=== PATIENT | male | born 1995 | race Caucasian/White ===

== ENCOUNTER 2024-07-08 20:45 | Emergency (ER) | payer BC, SELFPAY ==
[2024-07-08 20:57] VITALS: BP 139/84
[2024-07-08 21:27] VITALS: BMI 24.5
--- NOTE | 2024-07-08 21:28 | EDRN ---
Pt has a 'really bad headache' for last 48 hours which has gotten worse today. Pt feels weak, says he gets lightheaded when he stands up. Pt describes shooting pain R side of head and pain in his forehead. Pt took ES tylenol and aleve for pain
which made it more manageable but never got rid of pain. Pt has decreased appetite. No n/v, fever, ill contacts, cough, sore throat, cp/sob.
[2024-07-08 21:34] VITALS: BP 126/76
--- NOTE | 2024-07-08 21:40 | EDRN ---
Pt had covid last month and says his headache today feels similar. Pt tested himself at home and was negative for covid today. Pt took 2 ES tylenol at 1900.
[2024-07-08 22:00] VITALS: BP 109/76
--- NOTE | 2024-07-08 22:32 | ED.GENMED ---
History of Present Illness
General
Chief Complaint: Headache
Source: patient
Time Seen by Provider: 07/08/24 22:24
History of Present Illness
History of Present Illness:
This patient is a 29-year-old male who presents to the ER with a 2-day history of a headache. He first noticed it when he awoke, and at that time it was intermittent and described as 'sharp' momentary discomfort on the right side. Since then it is
gotten 'slowly more constant' and is now across the bifrontal area as well. He has had minimal relief with [id number]-[id number] medications. He has had headaches like this before, described as similar to his COVID headaches although he tested for
COVID COVID at home and is negative. He denies numbness, tingling, focal weakness, change in vision, change in speech, dizziness, vertigo, imbalance. He denies nausea or vomiting and he has mild loss of appetite.
Past History
Past History
ED Past Medical History: None
ED Past Surgical History: Other (hernia)
Social History
Tobacco: Non-smoker
Alcohol: Occasional
Drug: None
Personal:
Living: with family
Phy Exam
Physical Exam
Physical Exam:
GENERAL: Alert , in no apparent distress
EYE: pupils equal and reactive, no nystagmus, EOMI, no photophobia
NECK: Supple, no significant adenopathy, [place] no easily.
ENT: o/p clr, mmm.
CARDIAC: Regular rate and rhythm .
LUNGS: Clear breath sounds bilaterally, no acute respiratory distress,
ABDOMEN: Soft, without focal tenderness, no r/g, no cvat
NEUROLOGICAL: Alert and oriented, no focal neuro deficits, motor 5/5, sens intact, fundoscopic wnl, visual thurman intact, gait wnl, cranial nerves II through XII intact, [id number] normal
SKIN: Warm and dry, skin intact.
MUSCULOSKELETAL: No edema, well perfused.
PSYCH: Normal and appropriate interaction.
Course
Orders/Labs/Results
Orders:
Orders
07/08/24 22:24
CT Head W/o Iv Contrast Urgent
Comment:
Reason For Exam: agudelo
07/08/24 22:35
0.9% Sodium Chloride 1000 ml [Nss] 1,000 ml IV BOLUS
07/08/24 22:41
Complete Blood Count/No Diff Urgent
Comprehensive Metabolic Panel Urgent
07/08/24 23:06
Diphenhydramine [Benadryl] 25 mg IV NOW STA
Metoclopramide [Reglan] 10 mg IV NOW STA
Abnormal Lab Results
07/08/24
22:41
MPV 10.9 H fL
(7.4-10.4)
07/08/24 22:41
07/08/24 22:41
Vital Signs
Initial and Last Documented VS:
Initial Vital Signs
Temp Pulse Resp BP Pulse Ox
98.9 F 124 18 139/84 95
07/08/24 20:57 07/08/24 20:57 07/08/24 20:57 07/08/24 20:57 07/08/24 20:57
Last Documented Vital Signs
Temp Pulse Resp BP Pulse Ox
98.9 F 93 12 123/88 95
07/08/24 20:57 07/08/24 23:00 07/08/24 22:00 07/08/24 23:00 07/08/24 20:57
*Critical Care Note
Total Time (30-74mins, 75-104mins- exclusive of procedures): Not Applicable
Update Note
Update Note:
Patient presents to the Emergency Department with h/a
Number and Complexity of Problems Addressed at the Encounter
� Chronic conditions affecting care:
� Acute Exacerbation and/or Progression of Chronic Illness:
� Differential Diagnosis includes: but not limited to sah, migraine, tension headache, etc
Amount and/or Complexity of Data to be Reviewed and Analyzed
� I performed an independent evaluation of and my interpretation is:
EKG:
CT: Read by radiology vision, NAD head CT
Xrays:
Laboratory Studies:unremkarable
Other:
� Review of other/old records reveals:
� Clinical information was obtained by an independent historian:
� Prescriptions/Medications Considered but not given:
� Further testing considered but not performed:
Risk of Complications and/or Morbidity or Mortality of Patient Management
� Social determinants of health affecting care:
� Discussion with other providers (PCP, Hospitalists, Consultants, etc):
� Escalation of care including admission/observation vs risk of discharge considered: Clinically doubt bleeding given lack of 'red flag' findings such as sudden onset, worst of life, meningismus, etc. etc. Patient also does not
identify signs or symptoms to suggest dissection, no recent trauma, no neck pain. Neurological exam is completely normal, no infection signs or symptoms. IV fluids started, will medicate here and observe closely
1217AM pT smiling, happy,nontoxic, h/a almost fully resolved, feels 'much better' and would like to be discharged. Aware of labs/head ct, import of f/u and reasons to rted.
ED Attending Note
-
Portions of this chart may have been created with voice recognition software.� Occasional wrong word or��sound alike� substitutions may have occurred due to the inherent limitations of voice recognition software.
Discharge Plan
Departure
Patient Disposition: Home (Routine Discharge)
Date of Disposition: 07/09/24
Time of Disposition: 00:16
Patient with high blood pressure during this ER visit?: Yes
Condition: Good
Discharge Problem:
Headache
Instructions: Headache, Adult (DC), BLOOD PRESSURE
Prescriptions:
No Action
No Current Medications
0
Referrals:
NONE,* [Family Provider] -
Activity Restrictions/Additional Instructions:
PLEASE SEE YOUR DOCTOR IN CLOSE FOLLOW UP. IF YOU DEVELOP FEVER, VOMITING, INCREASING/NEW/PERSISTENT HEADACHE, NUMBNESS, WEAKNESS, VISUAL CHANGES, DIZZINESS, OR OTHER WORRISOME SIGNS, GO TO THE ER IMMEDIATELY!
Interventions
Interventions:
*Risk Screen - Suicide Last Done: 07/08/24 20:59
*General Assessment Last Done: 07/08/24 20:57
*Neglect/Abuse Screening Last Done: 07/08/24 20:57
ED- Fall Risk Assessment Last Done: 07/08/24 21:39
*ED COVID-19 Vaccine History Last Done: 07/08/24 21:27
ED- Neurological Assessment Last Done: 07/08/24 21:39
Discharge Date and Time
Print Language: KYRGYZ
[2024-07-08] MEDS: NSS 1000 IV (22:47)
[2024-07-08 22:56] LABS: Hematocrit 40.5 % (39.0-52.0); Hemoglobin 14.9 g/dL (13.0-18.0); Mean Corp Hgb Conc. 36.8 g/dL (33.0-37.0); Mean Corpuscular Hgb 30.8 pg (27.0-31.0); Mean Corpuscular Volume 83.7 fL (80.0-94.0); Mean Platelet Volume 10.9 fL (7.4-10.4); Platelet Count 161 10^3/uL (130-400); Red Blood Cell Count 4.84 10^6/uL (4.70-6.10); Red Cell Dist. Width 11.5 % (11.5-14.5); White Blood Cell Count 6.8 10^3/uL (4.8-10.8)
[2024-07-08 23:00] VITALS: BP 123/88
[2024-07-08] MEDS: BENADRYL 25 MG IV (23:09)
[2024-07-08] MEDS: REGLAN 10 MG IV (23:13)
[2024-07-08 23:14] LABS: ALT (SGPT) 24 U/L (0-50); AST (SGOT) 25 U/L (17-59); Albumin 4.5 g/dl (3.5-5.0); Alkaline Phosphatase 52 U/L (38-126); Blood Urea Nitrogen 10 mg/dl (9-20); Calcium 9.4 mg/dl (8.4-10.2); Carbon Dioxide 29 mmol/L (22-30); Chloride 105 mmol/L (98-107); Estimated Creatinine Clearance > 125 ml/min; Glucose 94 mg/dl (70-99); Potassium 4.2 mmol/L (3.5-5.1); Sodium 144 mmol/L (135-145); Total Bilirubin 0.8 mg/dl (0.2-1.3); eGFR > 60.00
== END 2024-07-09 00:31 | disposition home or self-care (01) ==
LOC: EMR 20:45
PROVIDERS: EMERGENCY PHYSICIAN Emergency Medicine
DX: R51.9 Headache, unspecified (principal); R03.0 Elevated blood-pressure reading, without diagnosis of hypertension
CPT/HCPCS: 99284; 96374; 96375; 96361; 70450; 80053; 85027; 99285

== ENCOUNTER 2024-07-09 10:00 | Emergency (ER) | payer BC, SELFPAY ==
[2024-07-09 10:24] VITALS: BP 109/67
--- NOTE | 2024-07-09 12:23 | ED.GENMED ---
History of Present Illness
General
Chief Complaint: Headache
Time Seen by Provider: 07/09/24 11:51
History of Present Illness
History of Present Illness:
HPI: Patient had onset of MUNGUIA 2 mornings ago as he woke up. Slow onset and progression. He was seen in the ED last evening and had a negative brain CT as well as unremarkable basic blood work. Came back due to vomiting and fever overnight.
102.4F temp today. Some confusion overnight. States he had COVID test that was negative.
EXAM:
GENERAL: Well appearing in minimal distress
HEENT: Moist oral mucosa, there is no nuchal rigidity and he is able to flex the cervical spine from chin to chest without any difficulty
CARDIOVASCULAR: No murmurs, normal heart rate, regular rhythm, No chest wall tenderness
PULMONARY: No respiratory distress, breath sounds are clear and equal
ABDOMEN: Soft with no peritoneal signs, no tenderness
NEUROLOGIC: Excellent strength all extremities, no coordination deficits, negative Kernig's, negative emergency signs
PSYCHIATRIC: Appropriate mental status, normal insight and judgement, he does appear somewhat frustrated with the lack of clear diagnosis and lack of anything that helps for the pain
EXTREMITIES: Nontender, no edema, moves all extremities equally
SKIN: No rash, no lesions
TIME OF INITIAL ENCOUNTER: 12:15 PM
NUMBER AND COMPLEXITY OF PROBLEMS ADDRESSED AT THE ENCOUNTER
� Chronic conditions affecting care: The patient is otherwise healthy
� Acute Exacerbation and/or Progression of Chronic Illness: This is an acute problem
� Differential Diagnosis includes: Headache related to viral illness, nonspecific headache, migraine, Lyme
AMOUNT AND/OR COMPLEXITY OF DATA TO BE REVIEWED AND ANALYZED
� I performed an independent evaluation of and my interpretation is:
EKG:
CT:
X-rays:
Laboratory Studies: CBC and chemistries unremarkable, Lyme and sed rate pending
Other:
� Review of other/old records: CAT scan from yesterday evening was negative
� Clinical information was obtained by an independent historian: I spoke to the at bedside
� Prescriptions/Medications Considered but not given:
� Further testing considered but not performed: Offered and considered LP, but highly doubt bacterial meningitis and pt declines.
RISK OF COMPLICATIONS AND/OR MORBIDITY OR MORTALITY OF PATIENT MANAGEMENT
� Social determinants of health affecting care: Lives as home
� Discussion with other providers: Given the ongoing symptoms, Dr. Vee is evaluating the ED. Dr. Vee recommends adding Lyme and ESR.
� Escalation of care including admission/observation vs risk of discharge considered: Patient does not necessarily want to try Reglan and Benadryl again because it did not help much yesterday. He is rather frustrated about the
ongoing pain. We ultimately agreed to try Toradol, Decadron, and Valium. Some improvement on reassessment at 1415.
Past History
Past History
ED Past Medical History: None
ED Past Surgical History: Other (hernia)
Social History
Tobacco: Non-smoker
Alcohol: Occasional
Drug: None
Personal:
Living: with family
Phy Exam
Physical Exam
Physical Exam:
See HPI
Course
Orders/Labs/Results
Orders:
Orders
07/09/24 12:26
0.9% Sodium Chloride 1000 ml [Nss] 1,000 ml IV BOLUS
07/09/24 12:39
Dexamethasone Sod Phosphate [Decadron] 10 mg IV NOW STA
Ketorolac [Toradol] 15 mg IV NOW STA
diazePAM [Valium Injection] 5 mg IV NOW STA
07/09/24 12:47
Basic Metabolic Panel Urgent
Complete Blood Count/With Diff Urgent
Erythrocyte Sed Rate Urgent
Comment: ADD ON
07/09/24 12:51
Lactic Acid Q4H
Comment: CANCEL 2nd LACTIC ACID IF 1st LACTIC ACID IS LESS THAN 2
Blood Culture Urgent
[place] Source: Blood/Venous
Specimen Description:
07/09/24 12:52
Blood Culture Routine
[place] Source: Blood/Venous
Specimen Description:
07/09/24 13:02
Add On- LAB Urgent
Tests Added?: esr
07/09/24 13:08
Lyme Progressive Urgent
07/09/24 17:00
Lactic Acid Q4H
Comment: CANCEL 2nd LACTIC ACID IF 1st LACTIC ACID IS LESS THAN 2
Abnormal Lab Results
07/09/24
12:47
MPV 10.5 H fL
(7.4-10.4)
Absolute Monos (auto) 0.7 H 10^3/uL
(0.1-0.6)
Lymphocytes % 16.5 L %
(20.5-51.1)
BUN 7 L mg/dl
(9-20)
07/09/24 12:47
07/09/24 12:47
Vital Signs
Initial and Last Documented VS:
Initial Vital Signs
Temp Pulse Resp BP Pulse Ox
99.1 F 115 18 109/67 95
07/09/24 10:24 07/09/24 10:24 07/09/24 10:24 07/09/24 10:24 07/09/24 10:24
Last Documented Vital Signs
Temp Pulse Resp BP Pulse Ox
99.1 F 117 18 137/83 95
07/09/24 10:24 07/09/24 13:00 07/09/24 10:24 07/09/24 13:00 07/09/24 13:45
*Critical Care Note
Total Time (30-74mins, 75-104mins- exclusive of procedures): Not Applicable
ED Attending Note
-
Portions of this chart may have been created with voice recognition software.� Occasional wrong word or��sound alike� substitutions may have occurred due to the inherent limitations of voice recognition software.
Discharge Plan
Departure
Patient Disposition: Home (Routine Discharge)
Date of Disposition: 07/09/24
Time of Disposition: 14:08
Patient with high blood pressure during this ER visit?: Yes
Discharge Problem:
Headache, Acute febrile illness
Instructions: Headache, Adult (DC), BLOOD PRESSURE
Prescriptions:
New
prednisone 50 mg tablet
50 mg PO DAILY Qty: 4 0RF
diazepam [Valium] 5 mg tablet
5 mg PO BID PRN (Reason: Headache) Qty: 10 0RF
ondansetron HCl 4 mg tablet
4 mg PO Q8H PRN (Reason: nausea and vomiting) Qty: 10 0RF
Referrals:
Tj Vee MD [Active] - Follow up in 5-7 days
NONE,* [Family Provider] -
Activity Restrictions/Additional Instructions:
The cause of your symptoms is unclear, but may be related to a viral syndrome. Your WBC count is normal, but the number of lymphocytes are slightly low as can be seen with a viral syndrome. Lyme test is pending - we will call you if it is
positive. Dr. Vee recommended checking an inflammatory marker called a sed rate and this was normal. Blood cultures are pending. Lactic acid level is normal (commonly high with severe infection called sepsis). Return here if worse or other
concerns.
Interventions
Interventions:
*Risk Screen - Suicide Last Done: 07/09/24 13:11
*General Assessment Last Done: 07/09/24 13:11
*Neglect/Abuse Screening Last Done: 07/09/24 13:11
*ED COVID-19 Vaccine History Last Done: 07/09/24 13:11
ED- Neurological Assessment Last Done: 07/09/24 13:11
Discharge Date and Time
Print Language: WALLISIAN
[2024-07-09 12:38] VITALS: BP 139/83
[2024-07-09] MEDS: TORADOL 15 MG IV (12:48)
[2024-07-09] MEDS: DECADRON 10 MG IV (12:48)
[2024-07-09] MEDS: NSS 1000 IV (12:48)
[2024-07-09] MEDS: VALIUM INJECTION 5 MG IV (12:49)
[2024-07-09 13:00] VITALS: BP 137/83
[2024-07-09 13:09] LABS: % Basophils 0.1 % (0-2); % Immature Granulocytes 0.3 % (0-0.5); % Lymphocytes 16.5 % (20.5-51.1); % Monocytes 8.6 % (1.7-9.3); % Neutrophils 74.5 % (42.2-75.2); Absolute Lymphocytes 1.3 10^3/uL (1.2-3.4); Absolute Monocytes 0.7 10^3/uL (0.1-0.6); Absolute Neutrophils 5.8 10^3/uL (1.4-6.5); Hematocrit 40.1 % (39.0-52.0); Hemoglobin 14.5 g/dL (13.0-18.0); Mean Corp Hgb Conc. 36.2 g/dL (33.0-37.0); Mean Corpuscular Hgb 30.5 pg (27.0-31.0); Mean Corpuscular Volume 84.2 fL (80.0-94.0); Mean Platelet Volume 10.5 fL (7.4-10.4); Nucleated Red Blood Cells % 0 % (-); Platelet Count 162 10^3/uL (130-400); Red Blood Cell Count 4.76 10^6/uL (4.70-6.10); Red Cell Dist. Width 11.5 % (11.5-14.5); White Blood Cell Count 7.8 10^3/uL (4.8-10.8)
[2024-07-09 13:27] LABS: Lactic Acid 0.9 mmol/L (0.7-2.0)
[2024-07-09 13:29] LABS: Blood Urea Nitrogen 7 mg/dl (9-20); Calcium 9.9 mg/dl (8.4-10.2); Carbon Dioxide 26 mmol/L (22-30); Chloride 102 mmol/L (98-107); Glucose 96 mg/dl (70-99); Potassium 4.5 mmol/L (3.5-5.1); Sodium 139 mmol/L (135-145); eGFR > 60.00
[2024-07-09 14:07] LABS: Erythrocyte Sed Rate 2 mm/hour (0-20)
[2024-07-12 13:55] LABS: Lyme Antibody Screen, EIA Negative (Negative)
== END 2024-07-09 14:40 | disposition home or self-care (01) ==
LOC: EMR 10:00
PROVIDERS: EMERGENCY PHYSICIAN Emergency Medicine
DX: R50.9 Fever, unspecified (principal); R51.9 Headache, unspecified; R11.10 Vomiting, unspecified; R41.0 Disorientation, unspecified; R03.0 Elevated blood-pressure reading, without diagnosis of hypertension
CPT/HCPCS: 99284; 96374; 96375 ×2; 96361; 80048; 83605; 85025; 85652; 86618; 87040